=== PATIENT | female | born 2000 | race Caucasian/White ===

== ENCOUNTER 2018-05-10 06:30 | Day surgery (SDC) | payer OTHER ==
[~2018-05-10] VITALS: Ht 152.4 cm; Wt 54.0 kg
[2018-05-10] MEDS ORDERED: CEFAZOLIN 1 GM IVPB PREMIX 50 ML IV ONE (07:00)
[2018-05-10 07:10] LABS: HCG,QUAL RESULT NEGATIVE (NEGATIVE)
[2018-05-10] MEDS ORDERED: NEOSTIGMINE METHYLSULFATE 1 MG/ML, 10 ML VIAL IVP ONE (09:25)
[2018-05-10] MEDS ORDERED: LR 1,000 ML IV.SOLN IV ONE (09:25)
[2018-05-10] MEDS ORDERED: MIDAZOLAM HCL 5 MG/5 ML VIAL IVP ONE (09:25)
[2018-05-10] MEDS ORDERED: PROPOFOL 200MG/ 20ML VIAL (DIPRIVAN) IV ONE (09:25)
[2018-05-10] MEDS ORDERED: GLYCOPYRROLATE 0.2 MG/ML VIAL IJ ONE (09:25)
[2018-05-10] MEDS ORDERED: SEVOFLURANE 15 MIN GAS INH ONE (09:25)
[2018-05-10] MEDS ORDERED: ONDANSETRON HCL 4 MG/2 ML VIAL IVP ONE (09:25)
[2018-05-10] MEDS ORDERED: fentaNYL CITRATE 250 MCG/5 ML AMP IV ONE (09:25)
[2018-05-10] MEDS ORDERED: ROCURONIUM BROMIDE 10 MG/ML (ZEMURON) IV ONE (09:25)
[2018-05-10] MEDS ORDERED: NS 1000 ML IV.SOLN IV ONE (09:25)
[2018-05-10] MEDS ORDERED: IOHEXOL 50 ML IV ONE (09:46)
[2018-05-10] MEDS ORDERED: LR 1,000 ML IV SCH (10:07)
[2018-05-10] MEDS ORDERED: METOCLOPRAMIDE HCL 10 MG/2 ML VIAL IVP PRN (10:15)
[2018-05-10] MEDS ORDERED: MORPHINE 4 MG/ML INJ. SYRINGE IVP PRN ×3 (10:15)
[2018-05-10] MEDS ORDERED: D5/0.45 NS 1,000 ML IV SCH (10:20)
[2018-05-10] MEDS ORDERED: HYDROmorphone 1 MG INJ. 1 MG/ML AMPUL IVP PRN (10:30)
[2018-05-10] MEDS ORDERED: MORPHINE 4 MG/ML INJ. SYRINGE ONE (10:35)
[2018-05-10 11:15] VITALS: BP_SYST 127
[2018-05-10] MEDS ORDERED: HYDROcodone/ACETAMIN 5-325 MG TAB (NORCO/ VICODIN) ONE (11:27)
[2018-05-10] MEDS ORDERED: HYDROcodone/ACETAMIN 5-325 MG TAB (NORCO/ VICODIN) PO PRN ×2 (13:15)
== END 2018-05-10 12:40 | disposition home or self-care (01) ==
LOC: SDS 06:30 → SMU 06:30 → SDS 12:40
PROVIDERS: ATTEND Colon & Rectal Surgery
DX: K80.10 Calculus of gallbladder with chronic cholecystitis without obstruction (principal); J45.909 Unspecified asthma, uncomplicated; Q21.3 Tetralogy of Fallot; Z98.890 Other specified postprocedural states; Z93.1 Gastrostomy status; Z83.3 Family history of diabetes mellitus; Z82.49 Family history of ischemic heart disease and other diseases of the circulatory system; Z79.899 Other long term (current) drug therapy
CPT/HCPCS: 47563; 74300; 84703; 88304; C1727; C1758; J0690; J2250; J2270; J2405; J2704; J2710; J3010; J3490; J7030; J7120; Q9967